=== PATIENT | female | born 1975 | race Caucasian/White ===

== ENCOUNTER 2020-11-05 13:48 | Emergency (ER) | payer BC, OTHER ==
[2020-11-05 14:07] VITALS: RESP 18; TEMP 98.4
[2020-11-05] MEDS ORDERED: HYDROmorphone 1 MG/ML 1 ML SYRINGE IM STA ×2 (14:23→15:48)
--- NOTE | 2020-11-05 14:40 | ED ---
Lower Extremity Injury HPI - General Chief Complaint: Extremity Injury, Lower Stated Complaint: lt calf injury Time Seen by Provider: 11/05/20 14:19 Source: patient, RN notes reviewed Mode of arrival: wheelchair Limitations: no limitations - History of Present Illness Initial Comments: Patient is a 44-year-old female that presents to emergency department complaining of left calf pain that happened approximately 1-2 hours ago.. She notes that for the past week or 2 she's been constant and cramping she's been try to take magnesium and other multivitamins to help with that. She notes today after walking she was doing laundry when she felt a snap and heard it in her left calf. She notes that she does have a history of a partial calf tear in her right leg and this one felt very similar but more excruciating. She notes that she is still alert toes and feel all her toes it just hurts to move secondary to pain. She notes that she did try calling her orthopedics office today but they told her they could not see her but to come to the come emergency room. She was sitting up in bed in mild pain but no discomfort during the exam and interview. She notes that she does have some numbness and tingling with decreased range of motion strength secondary to pain. She denied any recent injury trauma, clotting disorders, decreased sensation, chest pain shortness of breath headache nausea vomiting diarrhea constipation fever fatigue chills. - Related Data Previous Rx's Medication Instructions Recorded HYDROcodone/APAP 5-325MG [[place] 1 tab PO Q6HR PRN 7 Days #28 tab 11/05/20 5-325] Allergies Allergy/AdvReac Type Severity Reaction Status Date / Time acetaminophen Allergy Unknown Verified 11/05/20 14:07 [From Tylenol-Codeine #3] codeine Allergy Unknown Verified 11/05/20 14:07 [From Tylenol-Codeine #3] Review of Systems ROS Statement: Those systems with pertinent positive or pertinent negative responses have been documented in the HPI. ROS Other: All systems not noted in ROS Statement are negative. Past Medical History Past Medical History: No Reported History History of Any Multi-Drug Resistant Organisms: None Reported Past Surgical History: Appendectomy, Cholecystectomy, Hysterectomy, Orthopedic Surgery, Tonsillectomy Additional Past Surgical History / Comment(s): facial reconstruction Past Psychological History: No Psychological Hx Reported Smoking Status: Never smoker Past Alcohol Use History: None Reported Past Drug Use History: None Reported General Exam Limitations: no limitations General appearance: alert, in no apparent distress Head exam: Present: atraumatic, normocephalic, normal inspection Eye exam: Present: normal appearance, PERRL, EOMI. Absent: scleral icterus, conjunctival injection, periorbital swelling ENT exam: Present: normal exam, mucous membranes moist Neck exam: Present: normal inspection. Absent: tenderness, meningismus, lymphadenopathy Respiratory exam: Present: normal lung sounds bilaterally. Absent: respiratory distress, wheezes, rales, rhonchi, stridor Cardiovascular Exam: Present: regular rate, normal rhythm, normal heart sounds. Absent: systolic murmur, diastolic murmur, rubs, gallop, clicks GI/Abdominal exam: Present: soft, normal bowel sounds. Absent: distended, tenderness, guarding, rebound, rigid Extremities exam: Present: normal inspection, tenderness (Left calf mostly on the medial side.), normal capillary refill, calf tenderness (Left). Absent: full ROM (Left ankle decreased secondary to pain.), pedal edema, joint swelling Neurological exam: Present: alert, oriented X3, CN II-XII intact Psychiatric exam: Present: normal affect, normal mood Skin exam: Present: warm, dry, intact, normal color. Absent: rash Course Vital Signs 11/05/20 14:01 Temperature 98.4 F Pulse Rate 79 Respiratory 18 Rate Blood Pressure 145/80 O2 Sat by Pulse 98 Oximetry Procedures - Orthopedic Splinting/Casting Injury #1 Side: left Lower Extremity Injury Location: short leg Lower Extremity Immobilizer: stirrup splint Other Orthopedic Equipment: crutches Medical Decision Making - Medical Decision Making 44-year-old female complaining of left calf pain after hearing and feeling a sn ap. 1 mg Dilaudid, x-ray of left lower leg, ultrasound of left leg ordered. Patient some pain 1 more milligram of Dilaudid ordered. Case discussed with Dr. Liang, patient discharge home with outpatient follow- up to orthopedics. - Radiology Data Radiology results: report reviewed, image reviewed X-ray of the left tib-fib: No acute osseous abnormality. Venous Doppler ultrasound of left lower leg: Negative for DVT. Disposition Clinical Impression: Pain of left calf Disposition: HOME SELF-CARE Condition: Stable Instructions (If sedation given, give patient instructions): Leg Pain (ED) Additional Instructions: Please return to the Emergency Department if symptoms worsen or any other concerns. Follow-up with orthopedics outpatient as soon as possible. Can wear boot that he had a home instead a splint to keep foot a mobile. Take pain medications as prescribed. Is patient prescribed a controlled substance at d/c from ED?: Yes When asked, does pt state using other controlled substances?: No If prescribed controlled substance>3 days was MAPS reviewed?: Yes If opioid is for acute pain is fill amount 7 days or less?: Yes If Rx opioid, was Start Talking consent form obtained?: Yes Referrals: None,Stated [Primary Care Provider] - 1-2 days Duran Hill MD [STAFF PHYSICIAN] - 1-2 days Time of Disposition: 15:52
--- NOTE | 2020-11-05 15:06 | XR ---
EXAMINATION TYPE: XR tibia fibula LT DATE OF EXAM: 11/05/2020 COMPARISON: NONE HISTORY: Left lower leg pain TECHNIQUE: Two views are submitted. FINDINGS: The osseous structures are intact. The joint spaces are preserved. IMPRESSION: 1. No acute osseous abnormality.
--- NOTE | 2020-11-05 15:25 | US ---
EXAMINATION TYPE: US venous doppler duplex LE LT DATE OF EXAM: 11/05/2020 3:16 PM COMPARISON: NONE CLINICAL HISTORY: left calf tenderness/swelling. Pt states left calf pain that started today SIDE PERFORMED: Left TECHNIQUE: The lower extremity deep venous system is examined utilizing real time linear array sonog valdo with graded compression, doppler sonography and color-flow sonography. VESSELS IMAGED: Common Femoral Vein Deep Femoral Vein Greater Saphenous Vein * Femoral Vein Popliteal Vein Small Saphenous Vein * Proximal Calf Veins (* superficial vessels) Left Leg: Negative for DVT IMPRESSION: Grayscale, color doppler, spectral doppler imaging performed of the deep veins of the lo wer extremities. There is normal flow, compressibility, vascular waveforms.
[2020-11-05 16:21] VITALS: BP 135/84; PULSE 68
== END 2020-11-05 16:15 | disposition home or self-care (01) ==
LOC: EC 13:48
DX: M79.662 Pain in left lower leg (principal); Z88.5 Allergy status to narcotic agent; Z88.6 Allergy status to analgesic agent
CPT/HCPCS: 73590; 93971; 99283; 29515; 96372; J1170

== ENCOUNTER → 2021-07-29 | Outpatient (CLI) | payer OTHER ==
--- NOTE | 2021-07-29 22:02 | US ---
EXAMINATION TYPE: US thyroid st tissue head/neck DATE OF EXAM: 07/29/2021 COMPARISON: NONE CLINICAL HISTORY: M54.2 CERVICALGIA. sore throat for 3 months normal appearing lymph nodes bilateral neck, largest on right = 1.7 x 0.5 x 1.2cm and = 2.4 x 0.8 x 1 .6cm on the left Prominent bilateral neck lymph nodes remain subcentimeter in short axis but have eccentric cortical t hickening greater than 3 mm. IMPRESSION: Findings could reflect reactive adenopathy. Abnormal adenopathy related to neoplasm such as lymphoma is not excluded. Consider contrast enhanced neck CT to further evaluate.
== END | disposition home or self-care (01) ==
LOC: RADUSWWP 16:44
PROVIDERS: ATTEND Family Medicine
DX: R59.0 Localized enlarged lymph nodes (principal); M54.2 Cervicalgia; J02.9 Acute pharyngitis, unspecified
CPT/HCPCS: 76536

== ENCOUNTER → 2021-08-05 | Outpatient (CLI) | payer OTHER ==
--- NOTE | 2021-08-05 10:14 | CT ---
EXAMINATION TYPE: CT soft tissue neck w con DATE OF EXAM: 08/05/2021 COMPARISON: None HISTORY: Lymphadenopathy CT DLP: 635 mGycm CONTRAST: CT scan of the neck is performed with IV Contrast, patient injected with 100 ml mL of Isovue 300. Contrast enhanced CT of the neck was performed from the skull base through the lung apices. AIRWAY: The supraglottic, glottic, and subglottic portions of the airway appear patent and free of mass. SALIVARY GLANDS: The submandibular and parotid glands are free of mass or inflammatory process. THYROID GLAND: No nodules or masses seen. LYMPH NODES: No adenopathy seen greater than 1cm. LUNG APICES: No nodule or mass is seen. OTHER: Vascular structures are patent. No significant degenerative change of the cervical spine. N o abscess seen. IMPRESSION: No adenopathy greater than 1 cm seen within the [id number].
== END | disposition home or self-care (01) ==
LOC: RADCTMAIN 09:06
PROVIDERS: ATTEND Family Medicine
DX: R59.0 Localized enlarged lymph nodes (principal)
CPT/HCPCS: 70491; Q9967

== ENCOUNTER 2021-09-16 07:26 | Observation (INO) | payer OTHER ==
[2021-09-16] MEDS ORDERED: SODIUM CHLORIDE 0.9% 2,000 ML IV STA (07:59)
[2021-09-16] MEDS ORDERED: ONDANSETRON 4 MG/2 ML VIAL IVP STA (07:59)
--- NOTE | 2021-09-16 08:14 | ED ---
Abdominal Pain HPI - General Chief Complaint: Abdominal Pain Stated Complaint: High BP/diarrhea Time Seen by Provider: 09/16/21 07:36 Source: patient Mode of arrival: ambulatory Limitations: no limitations - History of Present Illness Initial Comments: 45-year-old female with no reported past medical history presents emergency room with nausea, vomiting and diarrhea since Thursday. Reports that she ate at a [employer] [place] with her son and they both have developed similar symptoms shortly afterwards. She had multiple episodes of loose watery, nonbloody stool for several days and now she reports that when she has a bowel movement that there is bright red blood when she wipes. She denies any associated fevers. Admits to nausea and vomiting when she has a severe abdominal cramping. She attempted to take Imodium at home without improvement in her symptoms. She went to an urgent care yesterday and was given a prescription for Lomotil and Cipro. Patient has yet to start Cipro. Took 2 doses overnight. Last bowel movement was around 3 AM. Denies black, tarry or sticky stools. No hematemesis. Mild generalized abdominal pain. No dysuria, hematuria or difficult voiding. No vaginal bleeding or discharge. She is status post cholecystectomy, hysterectomy and appendectomy. No other alleviating, precipitating or modifying factors - Related Data Home Medications Medication Instructions Recorded Confirmed Esomeprazole Magnesium [NexIUM 20 mg PO DAILY 09/16/21 09/16/21 24Hr] L. Paracasei/L. Rhamnosus 1 cap PO DAILY 09/16/21 09/16/21 [Culturelle Total Balance Cap] Previous Rx's Medication Instructions Recorded Dicyclomine [Bentyl] 10 mg PO QID #30 capsule 09/18/21 Diphenox-Atrop 2.5-0.025 mg 1 tab PO QID PRN #0 09/18/21 [Lomotil] Allergies Allergy/AdvReac Type Severity Reaction Status Date / Time codeine Allergy Abdominal Verified 09/16/21 09:05 [From Tylenol-Codeine #3] Pain Review of Systems ROS Statement: Those systems with pertinent positive or pertinent negative responses have been documented in the HPI. ROS Other: All systems not noted in ROS Statement are negative. Past Medical History Past Medical History: No Reported History History of Any Multi-Drug Resistant Organisms: None Reported Past Surgical History: Appendectomy, Cholecystectomy, Hysterectomy, Orthopedic Surgery, Tonsillectomy Additional Past Surgical History / Comment(s): facial reconstruction Past Psychological History: No Psychological Hx Reported Smoking Status: Never smoker Past Alcohol Use History: None Reported Past Drug Use History: None Reported - Past Family History Father Family Medical History: Cancer Additional Family Medical History / Comment(s): Father of esophageal cancer. Mother Family Medical History: Diabetes Mellitus General Exam Limitations: no limitations General appearance: alert, in no apparent distress Head exam: Present: atraumatic, normocephalic, normal inspection Eye exam: Present: normal appearance, PERRL, EOMI. Absent: scleral icterus, conjunctival injection, periorbital swelling ENT exam: Present: normal exam, mucous membranes moist Neck exam: Present: normal inspection. Absent: tenderness, meningismus, lymphadenopathy Respiratory exam: Present: normal lung sounds bilaterally. Absent: respiratory distress, wheezes, rales, rhonchi, stridor Cardiovascular Exam: Present: regular rate, normal rhythm, normal heart sounds. Absent: systolic murmur, diastolic murmur, rubs, gallop, clicks GI/Abdominal exam: Present: soft, normal bowel sounds. Absent: distended, tenderness, guarding, rebound, rigid Extremities exam: Present: normal inspection, full ROM, normal capillary refill. Absent: tenderness, pedal edema, joint swelling, calf tenderness Back exam: Present: normal inspection Neurological exam: Present: alert, oriented X3, CN II-XII intact Psychiatric exam: Present: normal affect, normal mood Skin exam: Present: warm, dry, intact, normal color. Absent: rash Course Vital Signs 09/16/21 09/16/21 09/16/21 07:32 08:20 10:24 Temperature 98.7 F Pulse Rate 86 69 57 L Respiratory 18 18 18 Rate Blood Pressure 127/91 130/89 127/86 O2 Sat by Pulse 98 95 99 Oximetry 09/16/21 09/16/21 10:44 11:20 Temperature Pulse Rate 70 65 Respiratory 18 18 Rate Blood Pressure 127/86 150/98 O2 Sat by Pulse 99 100 Oximetry Medical Decision Making - Medical Decision Making Upon arrival patient is placed into room 8. A thorough history and physical exam was performed. IV access is established and laboratory studies are conducted. Given a 2 L bolus of normal saline followed by 130 mL per hour. She is given Zofran for nausea. Laboratory studies are reviewed. Potassium is 2.6. Calcium 5.8. Glucose 73. Magnesium and ionized calcium labs are added. Urinalysis is clear. Patient is replaced with 20 mEq of IV potassium and 40 mEq by mouth. KUB demonstrates no evidence for free air or bowel obstruction. I discussed results of the patient. Due to her markedly abnormal labs did recommend admission for electrolyte replacement which the patient did agree to. Stool studies are ordered however patient cannot provide a sample at this time. Patient agreed to admission. Spoke with Dr. White who agreed to admit the patient. She is currently awaiting a bed on the floor in stable condition - Lab Data Result diagrams: 09/17/21 05:50 09/17/21 05:50 Lab Results 09/16/21 09/16/21 09/16/21 Range/Units 08:20 08:20 08:20 WBC 8.7 (3.8-10.6) k/uL RBC 5.02 (3.80-5.40) m/uL Hgb 15.0 (11.4-16.0) gm/dL Hct 43.8 (34.0-46.0) % MCV 87.1 (80.0-100.0) fL MCH 29.9 (25.0-35.0) pg MCHC 34.3 (31.0-37.0) g/dL RDW 13.9 (11.5-15.5) % Plt Count 188 (150-450) k/uL MPV 10.1 Neutrophils % 64 % Lymphocytes % 23 % Monocytes % 6 % Eosinophils % 4 % Basophils % 1 % Neutrophils # 5.6 (1.3-7.7) k/uL Lymphocytes # 2.0 (1.0-4.8) k/uL Monocytes # 0.5 (0-1.0) k/uL Eosinophils # 0.4 (0-0.7) k/uL Basophils # 0.1 (0-0.2) k/uL Sodium (137-145) mmol/L Potassium (3.5-5.1) mmol/L Chloride (98-107) mmol/L Carbon Dioxide (22-30) mmol/L Anion Gap mmol/L BUN (7-17) mg/dL Creatinine (0.52-1.04) mg/dL Est GFR (CKD-EPI)AfAm (>60 ml/min/1.73 sqM) Est GFR (CKD-EPI)NonAf (>60 ml/min/1.73 sqM) Glucose (74-99) mg/dL Plasma Lactic Acid Gonzalo 0.8 (0.7-2.0) mmol/L Calcium (8.4-10.2) mg/dL Ionized Calcium Zhang (4.5-5.3) mg/dL Magnesium (1.6-2.3) mg/dL Total Bilirubin (0.2-1.3) mg/dL AST (14-36) U/L ALT (4-34) U/L Alkaline Phosphatase (38-126) U/L Total Protein (6.3-8.2) g/dL Albumin (3.5-5.0) g/dL Lipase (23-300) U/L Urine Color Urine Appearance (Clear) Urine pH (5.0-8.0) Ur Specific [place] (1.001-1.035) Urine Protein (Negative) Urine Glucose (UA) (Negative) Urine Ketones (Negative) Urine Blood (Negative) Urine Nitrite (Negative) Urine Bilirubin (Negative) Urine Urobilinogen (<2.0) mg/dL Ur Leukocyte Esterase (Negative) Stool Lactoferrin POSITIVE A (NEGATIVE) Influenza Type A RNA (Not Detectd) Influenza Type B (PCR) (Not Detectd) 09/16/21 09/16/21 09/16/21 Range/Units 09:24 09:24 09:50 WBC (3.8-10.6) k/uL RBC (3.80-5.40) m/uL Hgb (11.4-16.0) gm/dL Hct (34.0-46.0) % MCV (80.0-100.0) fL MCH (25.0-35.0) pg MCHC (31.0-37.0) g/dL RDW (11.5-15.5) % Plt Count (150-450) k/uL MPV Neutrophils % % Lymphocytes % % Monocytes % % Eosinophils % % Basophils % % Neutrophils # (1.3-7.7) k/uL Lymphocytes # (1.0-4.8) k/uL Monocytes # (0-1.0) k/uL Eosinophils # (0-0.7) k/uL Basophils # (0-0.2) k/uL Sodium 139 (137-145) mmol/L Potassium 2.6 L* (3.5-5.1) mmol/L Chloride 120 H (98-107) mmol/L Carbon Dioxide 20 L (22-30) mmol/L Anion Gap -1 mmol/L BUN 5 L (7-17) mg/dL Creatinine 0.38 L (0.52-1.04) mg/dL Est GFR (CKD-EPI)AfAm >90 (>60 ml/min/1.73 sqM) Est GFR (CKD-EPI)NonAf >90 (>60 ml/min/1.73 sqM) Glucose 73 L (74-99) mg/dL Plasma Lactic Acid Gonzalo (0.7-2.0) mmol/L Calcium 5.8 L* (8.4-10.2) mg/dL Ionized Calcium Zhang (4.5-5.3) mg/dL Magnesium 1.5 L (1.6-2.3) mg/dL Total Bilirubin 0.6 (0.2-1.3) mg/dL AST 14 (14-36) U/L ALT 17 (4-34) U/L Alkaline Phosphatase 54 (38-126) U/L Total Protein 4.5 L (6.3-8.2) g/dL Albumin 2.2 L (3.5-5.0) g/dL Lipase 33 (23-300) U/L Urine Color Urine Appearance (Clear) Urine pH (5.0-8.0) Ur Specific [place] (1.001-1.035) Urine Protein (Negative) Urine Glucose (UA) (Negative) Urine Ketones (Negative) Urine Blood (Negative) Urine Nitrite (Negative) Urine Bilirubin (Negative) Urine Urobilinogen (<2.0) mg/dL Ur Leukocyte Esterase (Negative) Stool Lactoferrin (NEGATIVE) Influenza Type A RNA Not Detected (Not Detectd) Influenza Type B (PCR) Not Detected (Not Detectd) 09/16/21 09/16/21 Range/Units 10:25 10:32 WBC (3.8-10.6) k/uL RBC (3.80-5.40) m/uL Hgb (11.4-16.0) gm/dL Hct (34.0-46.0) % MCV (80.0-100.0) fL MCH (25.0-35.0) pg MCHC (31.0-37.0) g/dL RDW (11.5-15.5) % Plt Count (150-450) k/uL MPV Neutrophils % % Lymphocytes % % Monocytes % % Eosinophils % % Basophils % % Neutrophils # (1.3-7.7) k/uL Lymphocytes # (1.0-4.8) k/uL Monocytes # (0-1.0) k/uL Eosinophils # (0-0.7) k/uL Basophils # (0-0.2) k/uL Sodium (137-145) mmol/L Potassium (3.5-5.1) mmol/L Chloride (98-107) mmol/L Carbon Dioxide (22-30) mmol/L Anion Gap mmol/L BUN (7-17) mg/dL Creatinine (0.52-1.04) mg/dL Est GFR (CKD-EPI)AfAm (>60 ml/min/1.73 sqM) Est GFR (CKD-EPI)NonAf (>60 ml/min/1.73 sqM) Glucose (74-99) mg/dL Plasma Lactic Acid Gonzalo (0.7-2.0) mmol/L Calcium (8.4-10.2) mg/dL Ionized Calcium Zhang 5.1 (4.5-5.3) mg/dL Magnesium (1.6-2.3) mg/dL Total Bilirubin (0.2-1.3) mg/dL AST (14-36) U/L ALT (4-34) U/L Alkaline Phosphatase (38-126) U/L Total Protein (6.3-8.2) g/dL Albumin (3.5-5.0) g/dL Lipase (23-300) U/L Urine Color Light Yellow Urine Appearance Clear (Clear) Urine pH 6.0 (5.0-8.0) Ur Specific [place] 1.006 (1.001-1.035) Urine Protein Negative (Negative) Urine Glucose (UA) Negative (Negative) Urine Ketones Negative (Negative) Urine Blood Negative (Negative) Urine Nitrite Negative (Negative) Urine Bilirubin Negative (Negative) Urine Urobilinogen <2.0 (<2.0) mg/dL Ur Leukocyte Esterase Negative (Negative) Stool Lactoferrin (NEGATIVE) Influenza Type A RNA (Not Detectd) Influenza Type B (PCR) (Not Detectd) - EKG Data EKG Comments: EKG demonstrates sinus rhythm with a rate of 63. NM interval 158. QRS 94. QTC of 446. No acute ST segment elevations or depressions Disposition Clinical Impression: Nausea and vomiting, Hypoglycemia, Hypokalemia Disposition: ADMITTED IP TO THIS HOSP Condition: Stable Is patient prescribed a controlled substance at d/c from ED?: No Decision to Admit Reason: Admit from EC Decision Date: 09/16/21 Decision Time: 11:05
[2021-09-16 08:32] LABS: Basophils # (A) 0.1 k/uL (0-0.2); Basophils % (A) 1 %; Eosinophils # (A) 0.4 k/uL (0-0.7); Eosinophils % (A) 4 %; HCT 43.8 % (34.0-46.0); Lymphocytes % (A) 23 %; MCH 29.9 pg (25.0-35.0); MCHC 34.3 g/dL (31.0-37.0); MCV 87.1 fL (80.0-100.0); Mean Platelet Volume 10.1; Monocytes # (A) 0.5 k/uL (0-1.0); Monocytes % (A) 6 %; Neutrophils # (A) 5.6 k/uL (1.3-7.7); Neutrophils % (A) 64 %; Platelet Count 188 k/uL (150-450); RBC 5.02 m/uL (3.80-5.40); RDW 13.9 % (11.5-15.5); WBC 8.7 k/uL (3.8-10.6)
--- NOTE | 2021-09-16 08:55 | XR ---
EXAMINATION TYPE: XR KUB DATE OF EXAM: 09/16/2021 Comparison: 08/18/2013 Clinical History: 45-year-old female abdominal pain Findings: Lung bases are clear. No evidence for free intraperitoneal air. No dilated small bowel or air-fluid levels. Mild stool within the right side of the colon. Cholecystectomy clips. No suspicious calcifications seen. Impression: No evidence for free air or bowel obstruction. Only mild stool within the right side of the colon. Pr evious cholecystectomy.
[2021-09-16 09:43] LABS: ALT 17 U/L (4-34); AST 14 U/L (14-36); African American GFR (CKD) >90 (>60 ml/min/1.73 sqM); Albumin 2.2 g/dL (3.5-5.0); Alkaline Phosphatase 54 U/L (38-126); Anion Gap -1 mmol/L; Blood Urea Nitrogen 5 mg/dL (7-17); Carbon Dioxide 20 mmol/L (22-30); Chloride 120 mmol/L (98-107); Glucose 73 mg/dL (74-99); Lipase 33 U/L (23-300); Non-African American GFR(CKD) >90 (>60 ml/min/1.73 sqM); Sodium 139 mmol/L (137-145); Total Bilirubin 0.6 mg/dL (0.2-1.3); Total Protein 4.5 g/dL (6.3-8.2)
[2021-09-16 09:46] LABS: Calcium 5.8 mg/dL (8.4-10.2); Potassium 2.6 mmol/L (3.5-5.1)
[2021-09-16] MEDS ORDERED: POTASSIUM CHLORIDE ER 20 MEQ TAB.ER PO STA (09:53)
[2021-09-16] MEDS: DEXTROSE 50% SYRINGE 50 ML IVP STA ×2 (10:34→10:38)
[2021-09-16] MEDS: POTASSIUM CHLORIDE 10 MEQ in WATER FOR INJECTION 1 100ML.BAG IVPB SCH ×3 (10:35→14:10)
[2021-09-16] MEDS ORDERED: ONDANSETRON 4 MG/2 ML VIAL IVP PRN (11:05)
[2021-09-16] MEDS ORDERED: NALOXONE 0.4 MG/ML 1 ML VIAL IV PRN (11:05)
[2021-09-16 11:07] LABS: Appearance,Urine Clear (Clear); Bilirubin,Urine Negative (Negative); Blood,Urine Negative (Negative); Color,Urine Light Yellow; Glucose,Urine (UA) Negative (Negative); Ketones,Urine Negative (Negative); Leukocyte Esterase,Urine Negative (Negative); Nitrite,Urine Negative (Negative); Protein,Urine Negative (Negative); Specific Gravity,Urine 1.006 (1.001-1.035); Urobilinogen,Urine <2.0 mg/dL (<2.0)
[2021-09-16] MEDS: SODIUM CHLORIDE 0.9% 1,000 ML IV SCH ×3 (11:22→20:11)
--- NOTE | 2021-09-16 13:09 | P.HPIM ---
History of Present Illness H&P Date: 09/16/21 History of Presenting Illness: Patient is a very pleasant 45-year-old female with no known reported past medical history. She presented to the emergency department with a chief c omplaint of intractable diarrhea. Patient reports Thursday evening she and her son both ate a local [employer] and both suddenly came down with a GI bug consisting of n/v/d with intermittent abdominal cramping. Patient states, her son symptoms subsided but her symptoms have remained reporting multiple episodes of loose watery stool times many days. Patient reports having blood upon wiping, but otherwise denies having any hematochezia or melena. She also denies having any fevers, chills, diaphoresis, headache, lightheadedness, dizziness, chest pain, palpitations, shortness of breath. She does report having intermittent colicky abdominal pain just prior to episode of diarrhea otherwise reports mild tenderness in right and left lower abdominal quadrants. Patient was seen and fully evaluated in the emergency department. CBC was unremarkable. CMP revealing hypokalemia with potassium of 2.6 and hypomagnesemia with magnesium of 1.5. Urinalysis negative for infection. Influenza A and B negative. KUB showing no evidence of free air or bowel obstruction revealing only mild stool within the right side of the colon and findings of previous cholecystectomy. Patient does report recent completion of antibiotic course with Macrobid secondary to UTI, patient states completion of his antibiotic course last week. Patient admitted to observation unit under our services for continued close medical management. Review of systems: Pertinent positives and negatives as discussed in HPI, a complete review of systems was performed and all other systems are negative. Physical exam: Vital signs reviewed and stable. General: Nontoxic, no distress and appears stated age. Derm: Skin warm and dry, normal coloration for ethnicity. Head: Atraumatic, normocephalic and symmetric. Eyes: EOMs intact, no lid lag, and anicteric sclera Mouth: no lip lesions, mucus membranes moist Cardiovascular: regular rate and rhythm with normal S1S2, no murmur, positive posterior tibial pulses bilaterally, and cap refill < 2 seconds. Lungs: Respirations even, regular, and unlabored on room air. Lungs CTA bilaterally, no rhonchi, no rales, no wheezing, and no accessory muscle usage. Abdominal: soft, nontender to palpation, no guarding, no appreciable organomegaly Ext: ROM intact. No gross muscle atrophy, no edema, no contractures Neuro: Speech clear, face symmetrical and CN II-XII grossly intact with no noted focal neuro deficits Psych: Alert and oriented to person, place, time, and situation. Appropriate and pleasant affect. Assessment and Plan of Care: Intractable diarrhea resulting in electrolyte abnormalities Hypokalemia Hypomagnesemia -Vigorous rehydration with IV fluids -Replacement of abnormal electrolyte values and continued close monitoring with repeat a.m. labs. -Samples for C. diff, stool lactoferrin, and stool culture to be obtained. -Close monitoring of I's and O's -Supportive treatment The patient is admitted with an anticipated less than 2 midnight stay for evaluation of intractable diarrhea with electrolyte abnormalities. CODE STATUS: Full code DVT prophylaxis: Heparin Discussed with: Patient and RN Anticipated discharge date: 1-[address]: Home A total of 41 minutes was spent on the care of this complex patient more than 50 % of the time was spent in counseling and care coordination. Past Medical History Past Medical History: No Reported History Additional Past Medical History / Comment(s): Iron deficiency anemia d/t menses, noncancerous colon polyp History of Any Multi-Drug Resistant Organisms: None Reported Past Surgical History: Appendectomy, Cholecystectomy, Hysterectomy, Orthopedic S urgery, Tonsillectomy Additional Past Surgical History / Comment(s): facial reconstruction Past Anesthesia/Blood Transfusion Reactions: No Reported Reaction Past Psychological History: No Psychological Hx Reported Smoking Status: Never smoker Past Alcohol Use History: None Reported Past Drug Use History: None Reported - Past Family History Father Family Medical History: Cancer Additional Family Medical History / Comment(s): Father of esophageal cancer. Mother Family Medical History: Diabetes Mellitus Medications and Allergies Home Medications Medication Instructions Recorded Confirmed Type Diphenox-Atrop 2.5-0.025 mg 1 tab PO QID 09/16/21 09/16/21 History [Lomotil] Esomeprazole Magnesium [NexIUM 20 mg PO DAILY 09/16/21 09/16/21 History 24Hr] L. Paracasei/L. Rhamnosus 1 cap PO DAILY 09/16/21 09/16/21 History [Culturelle Total Balance Cap] Allergies Allergy/AdvReac Type Severity Reaction Status Date / Time codeine Allergy Abdominal Verified 09/16/21 09:05 [From Tylenol-Codeine #3] Pain Physical Exam Vitals: Vital Signs Temp Pulse Resp BP Pulse Ox 09/16/21 11:20 65 18 150/98 100 09/16/21 10:44 70 18 127/86 99 09/16/21 10:24 57 L 18 127/86 99 09/16/21 08:20 69 18 130/89 95 09/16/21 07:32 98.7 F 86 18 127/91 98 Intake and Output 09/15/21 09/16/21 09/16/21 22:59 06:59 14:59 Other: Weight 97.069 kg Results CBC & Chem 7: 09/16/21 08:20 09/16/21 09:24 Labs: Abnormal Lab Results - Last 24 Hours (Table) 09/16/21 09/16/21 Range/Units 09:24 09:24 Potassium 2.6 L* (3.5-5.1) mmol/L Chloride 120 H (98-107) mmol/L Carbon Dioxide 20 L (22-30) mmol/L BUN 5 L (7-17) mg/dL Creatinine 0.38 L (0.52-1.04) mg/dL Glucose 73 L (74-99) mg/dL Calcium 5.8 L* (8.4-10.2) mg/dL Magnesium 1.5 L (1.6-2.3) mg/dL Total Protein 4.5 L (6.3-8.2) g/dL Albumin 2.2 L (3.5-5.0) g/dL Thrombosis Risk Factor Assmnt - Choose All That Apply Any of the Below Risk Factors Present?: Yes Each Factor Represents 1 point: Age 41-60 years, Obesity (BMI >25) Other Risk Factors: No Other congenital or acquired thrombophilia - If yes, enter type in comment: No Thrombosis Risk Factor Assessment Total Risk Factor Score: 2 Thrombosis Risk Factor Assessment Level: Low Risk
[2021-09-16 13:19] LABS: Glucose,Whole Blood 83 mg/dL (75-99)
[2021-09-16] MEDS: MAGNESIUM SULFATE-D5W PMX 1 GM in DEXTROSE/WATER 1 100ML.BAG IVPB SCH ×3 (13:47→16:36)
[2021-09-16] MEDS: HEPARIN SODIUM,PORCINE/PF 5,000 UNIT/0.5 ML SYRINGE SQ SCH ×2 (15:35→22:09)
[2021-09-16 17:36] LABS: Glucose,Whole Blood 125 mg/dL (75-99)
[2021-09-17 01:03] LABS: Glucose,Whole Blood 100 mg/dL (75-99)
[2021-09-17] MEDS: SODIUM CHLORIDE 0.9% 1,000 ML IV SCH ×3 (04:00→15:22)
[2021-09-17 06:54] LABS: Glucose,Whole Blood 99 mg/dL (75-99)
[2021-09-17] MEDS: HEPARIN SODIUM,PORCINE/PF 5,000 UNIT/0.5 ML SYRINGE SQ SCH ×2 (09:12→18:07)
[2021-09-17 09:30] LABS: Basophils # (A) 0.07 X 10*3/uL (0.00-0.10); Basophils % (A) 0.9 %; Eosinophils # (A) 0.43 X 10*3/uL (0.04-0.35); Eosinophils % (A) 5.7 %; HCT 42.4 % (37.2-46.3); HGB 13.1 g/dL (12.0-15.0); Immature Grans, Automated 0.3 %; Lymphocytes # (A) 3.29 X 10*3/uL (0.90-5.00); Lymphocytes % (A) 43.6 %; MCH 28.6 pg (27.0-32.0); MCHC 30.9 g/dL (32.0-37.0); MCV 92.6 fL (80.0-97.0); Mean Platelet Volume 10.9 fL (9.5-12.2); Monocytes # (A) 0.51 X 10*3/uL (0.20-1.00); Monocytes % (A) 6.8 %; NRBC Per 100 WBC 0 /100 WBCS (0.0-0.0); Neutrophils # (A) 3.22 X 10*3/uL (1.80-7.70); Neutrophils % (A) 42.7 %; Platelet Count 246 X 10*3/uL (140-440); RBC 4.58 X 10*6/uL (4.10-5.20); RDW 13.8 % (11.5-14.5); WBC 7.54 X 10*3/uL (4.50-10.00)
[2021-09-17 11:08] LABS: African American GFR (CKD) >90 (>60 ml/min/1.73 sqM); Anion Gap 5 mmol/L; Blood Urea Nitrogen 5 mg/dL (7-17); Calcium 7.9 mg/dL (8.4-10.2); Carbon Dioxide 19 mmol/L (22-30); Chloride 113 mmol/L (98-107); Glucose 107 mg/dL (74-99); Magnesium 2.3 mg/dL (1.6-2.3); Non-African American GFR(CKD) >90 (>60 ml/min/1.73 sqM); Potassium 4.1 mmol/L (3.5-5.1); Sodium 137 mmol/L (137-145)
[2021-09-17 11:59] VITALS: BMI 29.8
[2021-09-17 12:25] LABS: Glucose,Whole Blood 93 mg/dL (75-99)
[2021-09-17] MEDS ORDERED: DIPHENOX-ATROP 2.5-0.025 MG 1 EACH TAB PO PRN (14:17)
[2021-09-17 17:51] LABS: Glucose,Whole Blood 96 mg/dL (75-99)
[2021-09-18 01:14] LABS: Glucose,Whole Blood 81 mg/dL (75-99)
[2021-09-18] MEDS: SODIUM CHLORIDE 0.9% 1,000 ML IV SCH (01:32)
[2021-09-18] MEDS: HEPARIN SODIUM,PORCINE/PF 5,000 UNIT/0.5 ML SYRINGE SQ SCH ×2 (01:32→11:29)
[2021-09-18 07:35] LABS: Glucose,Whole Blood 94 mg/dL (75-99)
--- NOTE | 2021-09-18 08:07 | P.PN ---
Subjective Progress Note Date: 09/17/21 Hospital Course: Patient is a very pleasant 45-year-old female with no known reported past medical history. She presented to the emergency department with a chief complaint of intractable diarrhea. Patient reports Thursday evening she and her son both ate a local [employer] and both suddenly came down with a GI bug consisting of n/v/d with intermittent abdominal cramping. Patient states, her son symptoms subsided but her symptoms have remained reporting multiple episodes of loose watery stool times many days. Patient reports having blood upon wiping, but otherwise denies having any hematochezia or melena. She also denies having any fevers, chills, diaphoresis, headache, lightheadedness, dizziness, chest pain, palpitations, shortness of breath. She does report having intermittent colicky abdominal pain just prior to episode of diarrhea otherwise reports mild tenderness in right and left lower abdominal quadrants. Patient was seen and fully evaluated in the emergency department. CBC was unremarkable. CMP revealing hypokalemia with potassium of 2.6 and hypomagnesemia with magnesium of 1.5. Urinalysis negative for infection. Influenza A and B negative. KUB showing no evidence of free air or bowel obstruction revealing only mild stool within the right side of the colon and findings of previous cholecystectomy. Patient does report recent completion of antibiotic course with Macrobid secondary to UTI, patient states completion of his antibiotic course last week. Patient admitted to observation unit under our services for continued close medical management. Physical exam: Pt seen and fully evaluated at the bedside this morning. she reports last night diarrhea improved, however she states this morning she has already had 5 episodes of loose watery stool. She denies any headache, lightheadedness, dizziness, or shortness of breath, CP, abdominal pain or any other complaints at this time. Samples for C. diff, negative, Stool lactoferrin positive, and Stool culture pending. Pt given a one time dose of lomotil. Vital signs reviewed and stable. General: Nontoxic, no distress and appears stated age. Derm: Skin warm and dry, normal coloration for ethnicity. Head: Atraumatic, normocephalic and symmetric. Eyes: EOMs intact, no lid lag, and anicteric sclera Mouth: no lip lesions, mucus membranes moist Cardiovascular: regular rate and rhythm with normal S1S2, no murmur, positive posterior tibial pulses bilaterally, and cap refill < 2 seconds. Lungs: Respirations even, regular, and unlabored on room air. Lungs CTA bilaterally, no rhonchi, no rales, no wheezing, and no accessory muscle usage. Abdominal: soft, nontender to palpation, no guarding, no appreciable organomegaly Ext: ROM intact. No gross muscle atrophy, no edema, no contractures Neuro: Speech clear, face symmetrical and CN II-XII grossly intact with no noted focal neuro deficits Psych: Alert and oriented to person, place, time, and situation. Appropriate and pleasant affect. Assessment and Plan of Care: Intractable diarrhea resulting in electrolyte abnormalities Hypokalemia, resolved Hypomagnesemia, resolved -Vigorous rehydration with IV fluids -Replacement of abnormal electrolyte values and continued close monitoring with repeat a.m. labs. -Samples for C. diff, negative -Stool lactoferrin positive -Stool culture pending -Close monitoring of I's and O's -Supportive treatment -Pt given a one time dose of lomotil The patient is admitted with an anticipated less than 2 midnight stay for evaluation of intractable diarrhea with electrolyte abnormalities. CODE STATUS: Full code DVT prophylaxis: Heparin Discussed with: Patient and RN Anticipated discharge date: 1-[address]: Home A total of 37 minutes was spent on the care of this complex patient more than 50% of the time was spent in counseling and care coordination. Objective - Vital Signs Vital signs: Vital Signs Temp 98.0 F 09/17/21 07:00 Pulse 74 09/17/21 09:21 Resp 16 09/17/21 07:00 BP 118/78 09/17/21 07:00 Pulse Ox 97 09/17/21 07:00 Intake & Output 09/16/21 09/17/21 09/17/21 18:59 06:59 18:59 Intake Total 220 118 Output Total 1 Balance 220 117 Weight 97.069 kg 97.069 kg Intake: Intake, IV Titration 100 Amount Magnesium Sulfate-D5w Pmx 100 1 gm In Dextrose/Water 1 100ml.bag @ 100 mls/hr IVPB Q1H [facility] Rx#: [id number] Oral 120 118 Output: Stool 1 Other: # Voids 1 1 1 # Bowel Movements 1 3 - Labs CBC & Chem 7: 09/17/21 05:50 09/17/21 05:50 Labs: Abnormal Lab Results - Last 24 Hours (Table) 09/16/21 09/16/21 09/17/21 Range/Units 08:20 17:25 01:02 MCHC (32.0-37.0) g/dL Eosinophils # (0.04-0.35) X 10*3/uL Chloride (98-107) mmol/L Carbon Dioxide (22-30) mmol/L BUN (7-17) mg/dL Creatinine (0.52-1.04) mg/dL Glucose (74-99) mg/dL POC Glucose (mg/dL) 125 H 100 H (75-99) mg/dL Calcium (8.4-10.2) mg/dL Stool Lactoferrin POSITIVE A (NEGATIVE) 09/17/21 09/17/21 Range/Units 05:50 05:50 MCHC 30.9 L (32.0-37.0) g/dL Eosinophils # 0.43 H (0.04-0.35) X 10*3/uL Chloride 113 H (98-107) mmol/L Carbon Dioxide 19 L (22-30) mmol/L BUN 5 L (7-17) mg/dL Creatinine 0.51 L (0.52-1.04) mg/dL Glucose 107 H (74-99) mg/dL POC Glucose (mg/dL) (75-99) mg/dL Calcium 7.9 L (8.4-10.2) mg/dL Stool Lactoferrin (NEGATIVE) Microbiology - Last 24 Hours (Table) 09/16/21 12:29 Stool Culture - Preliminary Stool
[2021-09-18 09:18] VITALS: BP 135/91; RESP 17; TEMP 98.2
--- NOTE | 2021-09-18 09:22 | P.DS ---
Providers Date of admission: 09/16/21 11:10 Attending physician: Izabel White DO Primary care physician: Juliana Gabriel MD Hospital Course: Discharge Diagnosis: Intractable diarrhea resulting in electrolyte abnormalities, resolved Hypokalemia, resolved Hypomagnesemia, resolved Hospital Course: Patient is a very pleasant 45-year-old female with no known reported past medical history. She presented to the emergency department with a chief complaint of intractable diarrhea. Patient reports Thursday evening she and her son both ate a local [employer] and both suddenly came down with a GI bug consisting of n/v/d with intermittent abdominal cramping. Patient states, her son symptoms subsided but her symptoms have remained reporting multiple episodes of loose watery stool times many days. Patient reports having blood upon wiping, but otherwise denies having any hematochezia or melena. She also denies having any fevers, chills, diaphoresis, headache, lightheadedness, dizziness, chest pain, palpitations, shortness of breath. She does report having intermittent colicky abdominal pain just prior to episode of diarrhea otherwise reports mild tenderness in right and left lower abdominal quadrants. Patient was seen and fully evaluated in the emergency department. CBC was unremarkable. CMP revealing hypokalemia with potassium of 2.6 and hypomagnesemia with magnesium of 1.5. Urinalysis negative for infection. Influenza A and B negative. KUB showing no evidence of free air or bowel obstruction revealing only mild stool within the right side of the colon and findings of previous cholecystectomy. Patient does report recent completion of antibiotic course with Macrobid secondary to UTI, patient states completion of his antibiotic course last week. Patient admitted to observation unit under our services for continued close medical management. Stool Samples for C. diff, negative, Stool lactoferrin positive, and Stool culture pending. Pt given a one time dose of lomotil on 09/17/21 and reports she has since been free from any further episodes of diarrhea. Patient reports she has experienced a couple episodes of abdominal cramping but otherwise denies any complaints. Patient is medically stable at this time and is stable for discharge home. 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 Physical exam: Vital signs reviewed and stable. General: Nontoxic, no distress and appears stated age. Derm: Skin warm and dry, normal coloration for ethnicity. Head: Atraumatic, normocephalic and symmetric. Eyes: EOMs intact, no lid lag, and anicteric sclera Mouth: no lip lesions, mucus membranes moist Cardiovascular: regular rate and rhythm with normal S1S2, no murmur, positive posterior tibial pulses bilaterally, and cap refill < 2 seconds. Lungs: Respirations even, regular, and unlabored on room air. Lungs CTA bilaterally, no rhonchi, no rales, no wheezing, and no accessory muscle usage. Abdominal: soft, nontender to palpation, no guarding, no appreciable organomegaly Ext: ROM intact. No gross muscle atrophy, no edema, no contractures Neuro: Speech clear, face symmetrical and CN II-XII grossly intact with no noted focal neuro deficits Psych: Alert and oriented to person, place, time, and situation. Appropriate and pleasant affect. A total of 38 minutes of time were spent preparing this complex discharge summary. Patient Condition at Discharge: Stable Plan - Discharge Summary Discharge Rx Participant: No New Discharge Prescriptions: New Dicyclomine [Bentyl] 10 mg PO QID #30 capsule Continue Esomeprazole Magnesium [NexIUM 24Hr] 20 mg PO DAILY L. Paracasei/L. Rhamnosus [Culturelle Total Balance Cap] 1 cap PO DAILY Changed Diphenox-Atrop 2.5-0.025 mg [Lomotil] 1 tab PO QID PRN #0 PRN Reason: Diarrhea Discharge Medication List Esomeprazole Magnesium [NexIUM 24Hr] 20 mg PO DAILY 09/16/21 [History] L. Paracasei/L. Rhamnosus [Culturelle Total Balance Cap] 1 cap PO DAILY 09/16/21 [History] Dicyclomine [Bentyl] 10 mg PO QID #30 capsule 09/18/21 [Rx] Diphenox-Atrop 2.5-0.025 mg [Lomotil] 1 tab PO QID PRN #0 09/18/21 [Rx] Follow up Appointment(s)/Referral(s): Juliana Gabriel MD [Primary Care Provider] - 09/23/21 1:30 pm Patient Instructions/Handouts: Hypokalemia (DC), Non-diabetic Hypoglycemia (DC) Activity/Diet/Wound Care/Special Instructions: Activity: As tolerated. Take breaks as needed. Diet: Heart healthy and carb consistent diet. Avoid salts, or foods with hidden salts such as canned or boxed foods and frozen dinners. Extra salt makes your heart work harder and traps the fluid in your body for longer. Special Instructions: Take all of your medications as directed and remember to keep all of your doctor's appointments and follow-up as needed. I truly hope you and your family have the most amazing vacation in [place]!!!!! Thank you for allowing us to participate in your care, it was truly a pleasure having you for our patient!!! Discharge Disposition: HOME SELF-CARE
[2021-09-18 11:24] VITALS: PULSE 66
== END 2021-09-18 12:00 | disposition home or self-care (01) ==
LOC: EC 07:26 → 6NMEDSUR 11:10
PROVIDERS: ADMIT Internal Medicine; ATTEND Internal Medicine
DX: R19.7 Diarrhea, unspecified (principal); E87.8 Other disorders of electrolyte and fluid balance, not elsewhere classified; E87.6 Hypokalemia; E83.42 Hypomagnesemia; E16.2 Hypoglycemia, unspecified; R11.2 Nausea with vomiting, unspecified; R10.814 Left lower quadrant abdominal tenderness; R10.813 Right lower quadrant abdominal tenderness; R10.84 Generalized abdominal pain; R03.0 Elevated blood-pressure reading, without diagnosis of hypertension; E66.9 Obesity, unspecified; Z68.29 Body mass index [BMI] 29.0-29.9, adult; Z87.440 Personal history of urinary (tract) infections; Z87.19 Personal history of other diseases of the digestive system; Z79.899 Other long term (current) drug therapy; Z88.5 Allergy status to narcotic agent; Z90.49 Acquired absence of other specified parts of digestive tract; Z90.710 Acquired absence of both cervix and uterus; Z71.9 Counseling, unspecified; Z80.0 Family history of malignant neoplasm of digestive organs; Z83.3 Family history of diabetes mellitus
CPT/HCPCS: 96361 ×2; 96366; 96367; 96372 ×2; 96365; 96375; 99285; 36415; 93005; 80053; 80048; 82330; 83605; 83690; 83735 ×2; 85025 ×2; 81003; 87324; 87045; 83630; 87046; 87502; 74018; G0378 ×3; J2405; J3475; J3480; J1644 ×2

== ENCOUNTER 2021-11-17 19:15 | Emergency (ER) | payer OTHER ==
[2021-11-17 19:26] VITALS: RESP 19; TEMP 98.3
[2021-11-17 19:28] VITALS: BP 128/84; PULSE 81
[2021-11-17] MEDS ORDERED: diphenhydrAMINE 25 MG CAP PO STA ×2 (19:28→23:18)
[2021-11-17] MEDS ORDERED: SODIUM CHLORIDE 0.9% 1,000 ML IV STA (21:59)
[2021-11-17] MEDS ORDERED: ONDANSETRON 4 MG/2 ML VIAL IVP STA (21:59)
[2021-11-17] MEDS ORDERED: methylPREDNISolone SOD SUCCI 125 MG/2 ML VIAL IV STA (21:59)
[2021-11-17] MEDS ORDERED: FAMOTIDINE 20 MG/2 ML VIAL IV STA (21:59)
[2021-11-17 22:46] LABS: Basophils # (A) 0.2 k/uL (0-0.2); Basophils % (A) 1 %; Eosinophils # (A) 0.4 k/uL (0-0.7); Eosinophils % (A) 2 %; HGB 15.8 gm/dL (11.4-16.0); Lymphocytes # (A) 3.5 k/uL (1.0-4.8); Lymphocytes % (A) 20 %; MCH 28.3 pg (25.0-35.0); MCHC 32.2 g/dL (31.0-37.0); MCV 87.8 fL (80.0-100.0); Monocytes # (A) 0.9 k/uL (0-1.0); Monocytes % (A) 5 %; Neutrophils # (A) 12.5 k/uL (1.3-7.7); Neutrophils % (A) 71 %; Platelet Count 268 k/uL (150-450); RBC 5.58 m/uL (3.80-5.40); RDW 13.3 % (11.5-15.5); WBC 17.6 k/uL (3.8-10.6)
[2021-11-17 23:00] LABS: ALT 19 U/L (4-34); African American GFR (CKD) >90 (>60 ml/min/1.73 sqM); Albumin 4.7 g/dL (3.5-5.0); Anion Gap 9 mmol/L; Blood Urea Nitrogen 11 mg/dL (7-17); Calcium 9.3 mg/dL (8.4-10.2); Carbon Dioxide 25 mmol/L (22-30); Chloride 107 mmol/L (98-107); Glucose 96 mg/dL (74-99); Non-African American GFR(CKD) >90 (>60 ml/min/1.73 sqM); Sodium 141 mmol/L (137-145); Total Bilirubin 0.6 mg/dL (0.2-1.3); Total Protein 7.7 g/dL (6.3-8.2)
[2021-11-17 23:04] LABS: AST 25 U/L (14-36); Alkaline Phosphatase 81 U/L (38-126); Potassium 4.2 mmol/L (3.5-5.1)
--- NOTE | 2021-11-17 23:19 | ED ---
Allergic Reaction HPI - General Chief complaint: Allergic Reaction Stated complaint: Allergic reaction Time Seen by Provider: 11/17/21 21:45 Source: patient Mode of arrival: ambulatory - History of Present Illness Initial Comments: Patient is a 45-year-old female presenting with chief complaint of ALLERGIC reaction. Patient was taking Sutent bowel prep tablets in preparation for her colonoscopy tomorrow. She states that shortly after taking them she began experiencing hives, facial swelling, throat swelling, flushing, and itching. Upon arrival to the ER she was given a Benadryl and states that her symptoms subsided. She is complaining of some nausea, and states that the effects of the bowel prep are starting to take place as she is experiencing some abdominal cramping and diarrhea. Currently she denies any chest pain, shortness of breath, dysphasia, palpitations, weakness, abdominal pain, vomiting, headache, vision or hearing changes, throat tightness, wheezing. - Related Data Home Medications Medication Instructions Recorded Confirmed Esomeprazole Magnesium [NexIUM 20 mg PO DAILY 09/16/21 09/16/21 24Hr] L. Paracasei/L. Rhamnosus 1 cap PO DAILY 09/16/21 09/16/21 [Culturelle Total Balance Cap] Previous Rx's Medication Instructions Recorded Dicyclomine [Bentyl] 10 mg PO QID #30 capsule 09/18/21 Diphenox-Atrop 2.5-0.025 mg 1 tab PO QID PRN #0 09/18/21 [Lomotil] Allergies Allergy/AdvReac Type Severity Reaction Status Date / Time codeine Allergy Abdominal Verified 11/17/21 19:26 [From Tylenol-Codeine #3] Pain Review of Systems ROS Statement: Those systems with pertinent positive or pertinent negative responses have been documented in the HPI. ROS Other: All systems not noted in ROS Statement are negative. Past Medical History Past Medical History: No Reported History Additional Past Medical History / Comment(s): Iron deficiency anemia d/t menses, noncancerous colon polyp History of Any Multi-Drug Resistant Organisms: None Reported Past Surgical History: Appendectomy, Cholecystectomy, Hysterectomy, Orthopedic Surgery, Tonsillectomy Additional Past Surgical History / Comment(s): facial reconstruction Past Anesthesia/Blood Transfusion Reactions: No Reported Reaction Past Psychological History: No Psychological Hx Reported Smoking Status: Never smoker Past Alcohol Use History: None Reported Past Drug Use History: None Reported - Past Family History Father Family Medical History: Cancer Additional Family Medical History / Comment(s): Father of esophageal cancer. Mother Family Medical History: Diabetes Mellitus General Exam Limitations: no limitations General appearance: alert, in no apparent distress Head exam: Present: atraumatic, normocephalic, normal inspection Eye exam: Present: normal appearance, EOMI. Absent: scleral icterus ENT exam: Present: normal exam, normal oropharynx, mucous membranes moist Neck exam: Present: normal inspection Respiratory exam: Present: normal lung sounds bilaterally. Absent: respiratory distress, wheezes, rales, rhonchi, stridor Cardiovascular Exam: Present: regular rate, normal rhythm, normal heart sounds. Absent: systolic murmur, diastolic murmur, rubs, gallop, clicks Neurological exam: Present: alert, oriented X3, CN II-XII intact Psychiatric exam: Present: normal affect, normal mood Skin exam: Present: warm, dry, intact, normal color. Absent: rash Course Vital Signs 11/17/21 19:23 Temperature 98.3 F Pulse Rate 81 Respiratory 19 Rate Blood Pressure 128/84 O2 Sat by Pulse 99 Oximetry Medical Decision Making - Medical Decision Making Patient is a 45-year-old female presenting with chief complaint of ALLERGIC reaction. Patient states that prior to arrival she was experiencing hives, itching, flushing, swelling of the face and throat. This occurred shortly after taking sutab bowel prep for colonoscopy tomorrow. Upon arrival she received a 5 mg of Benadryl in triage. Upon my evaluation the patient is sitting up talking and breathing comfortably. She has very few hives remaining, no evidence of lip swelling, uvula appears slightly enlarged, but does not appear to be any threat to the airway. Lungs are clear to auscultation, no wheezing. She is given Solu-Medrol, Pepcid, Zofran, fluids. CBC and CMP are unremarkable. Upon reexamination patient is continuing to feel better. She is experiencing some diarrhea and abdominal cramping secondary to the bowel prep. She appears stable for discharge with outpatient follow-up at this time. Follow-up with PCP in one to 2 days. Discontinue the use of this medication. Report back to ER if any worsening symptoms. I discussed return parameters and alarm symptoms. I answered all questions. Patient conveyed verbal understanding and agreed to the plan. I discussed this case with my attending Dr. Doyle. - Lab Data Result diagrams: 11/17/21 22:21 11/17/21 22:21 Lab Results 11/17/21 11/17/21 Range/Units 22:21 22:21 WBC 17.6 H (3.8-10.6) k/uL RBC 5.58 H (3.80-5.40) m/uL Hgb 15.8 (11.4-16.0) gm/dL Hct 49.0 H (34.0-46.0) % MCV 87.8 (80.0-100.0) fL MCH 28.3 (25.0-35.0) pg MCHC 32.2 (31.0-37.0) g/dL RDW 13.3 (11.5-15.5) % Plt Count 268 (150-450) k/uL MPV 8.0 Neutrophils % 71 % Lymphocytes % 20 % Monocytes % 5 % Eosinophils % 2 % Basophils % 1 % Neutrophils # 12.5 H (1.3-7.7) k/uL Lymphocytes # 3.5 (1.0-4.8) k/uL Monocytes # 0.9 (0-1.0) k/uL Eosinophils # 0.4 (0-0.7) k/uL Basophils # 0.2 (0-0.2) k/uL Sodium 141 (137-145) mmol/L Potassium 4.2 (3.5-5.1) mmol/L Chloride 107 (98-107) mmol/L Carbon Dioxide 25 (22-30) mmol/L Anion Gap 9 mmol/L BUN 11 (7-17) mg/dL Creatinine 0.50 L (0.52-1.04) mg/dL Est GFR (CKD-EPI)AfAm >90 (>60 ml/min/1.73 sqM) Est GFR (CKD-EPI)NonAf >90 (>60 ml/min/1.73 sqM) Glucose 96 (74-99) mg/dL Calcium 9.3 (8.4-10.2) mg/dL Total Bilirubin 0.6 (0.2-1.3) mg/dL AST 25 (14-36) U/L ALT 19 (4-34) U/L Alkaline Phosphatase 81 (38-126) U/L Total Protein 7.7 (6.3-8.2) g/dL Albumin 4.7 (3.5-5.0) g/dL Disposition Clinical Impression: Allergic reaction to drug Disposition: HOME SELF-CARE Condition: Good Instructions (If sedation given, give patient instructions): Urticaria (ED), Anaphylaxis (ED) Additional Instructions: Discontinue use of Sutab tablets. Follow-up with PCP in one to 2 days. Report back to ER if any worsening symptoms. Is patient prescribed a controlled substance at d/c from ED?: No Referrals: Juliana Gabriel MD [Primary Care Provider] - 1-2 days Time of Disposition: 23:19
== END 2021-11-17 23:33 | disposition home or self-care (01) ==
LOC: EC 19:15
DX: R22.0 Localized swelling, mass and lump, head (principal); R23.2 Flushing; R10.9 Unspecified abdominal pain; R11.0 Nausea; R19.7 Diarrhea, unspecified; T45.0X5A Adverse effect of antiallergic and antiemetic drugs, initial encounter; Z88.5 Allergy status to narcotic agent
CPT/HCPCS: 36415; 80053; 85025; 99284; 96374; 96375; 96361; J2930; J2405

== ENCOUNTER 2021-11-22 15:19 | Emergency (ER) | payer OTHER ==
[2021-11-22 15:47] VITALS: TEMP 98
[2021-11-22] MEDS ORDERED: CYCLOBENZAPRINE 5 MG TAB PO STA (16:10)
[2021-11-22] MEDS ORDERED: KETOROLAC 15 MG/ML 1 ML VIAL IM STA (16:10)
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
--- NOTE | 2021-11-22 16:45 | XR ---
EXAMINATION TYPE: XR humerus RT DATE OF EXAM: 11/22/2021 COMPARISON: NONE HISTORY: Pain TECHNIQUE: 3 views FINDINGS: Shoulder joint and elbow joint appear intact. There is no sign of fracture nor dislocation. IMPRESSION: Negative right humerus exam.
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
--- NOTE | 2021-11-22 16:47 | XR ---
EXAMINATION TYPE: XR cervical spine comp DATE OF EXAM: 11/22/2021 COMPARISON: NONE HISTORY: Pain TECHNIQUE: 5 views FINDINGS: There is anterior spurring at C5-6 and C6-7. Normal alignment. There is mild uncovertebral spurring at C5-6. Minimal neural foraminal impingement. There are no cervical ribs. Atlantoaxial facet joint is normal. IMPRESSION: Fibrotic changes in the lower cervical spine. Mild bilateral neural foraminal impingement at C5-6. No fracture.
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
[2021-11-22 17:46] VITALS: BP 122/79; PULSE 64; RESP 16
== END 2021-11-22 17:47 | disposition home or self-care (01) ==
LOC: EC 15:19
DX: S14.2XXA Injury of nerve root of cervical spine, initial encounter (principal); Z88.8 Allergy status to other drugs, medicaments and biological substances; Z88.5 Allergy status to narcotic agent; V43.52XA Car driver injured in collision with other type car in traffic accident, initial encounter; Y92.410 Unspecified street and highway as the place of occurrence of the external cause
CPT/HCPCS: 72050; 72100; 73030; 73060; 71046; 99284; 96372; J1885

== ENCOUNTER → 2022-11-05 | Outpatient (CLI) | payer OTHER ==
--- NOTE | 2022-11-07 08:02 | MM ---
Reason for Exam: Screening (asymptomatic). Last mammogram was performed 5 year(s) and 6 month(s) ago. Patient History: Menarche at age 12. First Full-Term at age 27. Hysterectomy at age 38. Incisional Biopsy on the Left side. Paternal grandmother had breast cancer. Maternal cousin had breast cancer. Risk Values: Carol 5 year model risk: 1.4%. NCI Lifetime model risk: 12.5%. Prior Study Comparison: 03/31/2016 Bilateral Screening Mammogram, [facility]. 05/11/2017 Bilateral Screening Mammogram, [facility]. Tissue Density: The breast tissue is heterogeneously dense. This may lower the sensitivity of mammography. Findings: Analyzed By CAD. There is no suspicious group of microcalcifications in either breast. No suspicious new mass within the right breast. There is an ovoid equal density circumscribed mass within the central left breast at 9:00 measuring 6 mm 3 cm from the nipple. Overall Assessment: Incomplete: need additional imaging evaluation, BI-RAD 0 Management: Diagnostic Breast Ultrasound of the left breast. A clinical breast exam by your physician is recommended on an annual basis and results should be correlated with mammographic findings. [facility] will attempt to contact patient to return for supplemental views and ultrasound if indicated. Electronically signed and approved by: Edu Garduno D.O.
== END | disposition home or self-care (01) ==
LOC: RADMAMWWP 07:14
PROVIDERS: ATTEND Family Medicine
DX: Z12.31 Encounter for screening mammogram for malignant neoplasm of breast (principal); Z80.3 Family history of malignant neoplasm of breast
CPT/HCPCS: 77063; 77067

== ENCOUNTER → 2022-11-17 | Outpatient (CLI) | payer OTHER ==
--- NOTE | 2022-11-17 14:09 | USB ---
Reason for Exam: Additional evaluation requested from abnormal screening. Patient History: Menarche at age 12. First Full-Term at age 27. Hysterectomy at age 38. Incisional Biopsy on the Left side. Paternal grandmother had breast cancer. Maternal cousin had breast cancer. Risk Values: Carol 5 year model risk: 1.4%. NCI Lifetime model risk: 12.5%. Technique: Method: Targeted. Prior Study Comparison: 03/31/2016 Bilateral Screening Mammogram, [facility]. 05/11/2017 Bilateral Screening Mammogram, [facility]. 11/05/2022 Bilateral MG 3D screening mammo w/cad, [facility]. Findings: The upper inner quadrant of the left breast, the axilla of the left breast and the retroareolar of the left breast were scanned. Targeted ultrasound left breast 9:00 to 12:00, upper inner quadrant including the subareolar region and axilla. The 9:00 position, 3 cm from the nipple, there is a 6 x 4 x 3 mm oval cyst with through transmission. Some minimal internal echoes are felt to be artifactual or could represent some debris. Mammographic correlate. No other solid or cystic lesion or axillary lymphadenopathy. Overall Assessment: Benign, BI-RAD 2 Management: Screening Mammogram of both breasts in 1 year. A clinical breast exam by your physician is recommended on an annual basis and results should be correlated with mammographic findings. This exam should not preclude additional follow-up of suspicious palpable abnormalities. Results were given to the patient verbally at the time of exam. Electronically signed and approved by: Viki Plascencia M.D. Radiologist
== END | disposition home or self-care (01) ==
LOC: RADUSWWP 13:18
PROVIDERS: ATTEND Family Medicine
DX: R92.8 Other abnormal and inconclusive findings on diagnostic imaging of breast (principal); Z80.3 Family history of malignant neoplasm of breast

== ENCOUNTER → 2022-12-08 | Outpatient (CLI) | payer OTHER ==
--- NOTE | 2022-12-08 22:19 | XR ---
EXAMINATION TYPE: XR chest 2V DATE OF EXAM: 12/08/2022 5:22 PM COMPARISON: Chest radiographs from 11/22/2021 TECHNIQUE: XR chest 2V Frontal and lateral views of the chest. CLINICAL INDICATION:Female, 47 years old with history of D45 D75.1 E88.01 R51.9; FINDINGS: Lungs/Pleura: There is no evidence of pleural effusion, focal consolidation, or pneumothorax. Pulmonary vascularity: Unremarkable. Heart/mediastinum: Cardiomediastinal silhouette is unremarkable. Musculoskeletal: No acute osseous pathology. IMPRESSION: No acute cardiopulmonary disease/process.
== END | disposition home or self-care (01) ==
LOC: RADXRMAIN 17:05
PROVIDERS: ATTEND Internal Medicine Hematology & Oncology
DX: D75.1 Secondary polycythemia (principal); E88.01 Alpha-1-antitrypsin deficiency; R51.9 Headache, unspecified
CPT/HCPCS: 71046

== ENCOUNTER → 2024-07-11 | Outpatient (CLI) | payer OTHER ==
--- NOTE | 2024-07-11 11:55 | MM ---
Reason for Exam: Screening (asymptomatic). Last mammogram was performed 1 year(s) and 8 month(s) ago. Patient History: Menarche at age 12. First Full-Term at age 27. Hysterectomy at age 38. Incisional Biopsy on the Left side. Paternal grandmother had breast cancer. Maternal cousin had breast cancer. Risk Values: Carol 5 year model risk: 1.3%. NCI Lifetime model risk: 12.1%. Prior Study Comparison: 03/31/2016 Bilateral Screening Mammogram, [facility] . 05/11/2017 Bilateral Screening Mammogram, [facility] . 11/05/2022 Bilateral MG 3D screening mammo w/cad, [facility]. Tissue Density: The breasts are heterogeneously dense, which may obscure small masses. Analyzed By CAD. Overall Assessment: Negative, BI-RAD 1 Management: Screening Mammogram of both breasts in 1 year. Electronically signed and approved by: Evaristo Brewer M.D.
== END | disposition home or self-care (01) ==
LOC: RADMAMWWP 08:48
PROVIDERS: ATTEND Family Medicine
DX: Z12.31 Encounter for screening mammogram for malignant neoplasm of breast (principal); Z80.3 Family history of malignant neoplasm of breast; R92.333 Mammographic heterogeneous density, bilateral breasts
CPT/HCPCS: 77063; 77067